=== PATIENT | male | born 1980 | race Caucasian/White ===

== ENCOUNTER 2016-09-27 19:17 | Emergency (ER) | payer OTHER | END 2016-09-27 21:26 | disposition home or self-care (01) | LOC: ER 19:17 | DX: R60.9 Edema, unspecified (principal); R94.5 Abnormal results of liver function studies; Z86.19 Personal history of other infectious and parasitic diseases; I10 Essential (primary) hypertension; J42 Unspecified chronic bronchitis; F17.210 Nicotine dependence, cigarettes, uncomplicated; Z88.1 Allergy status to other antibiotic agents | CPT/HCPCS: 36415; 96372; J1885 ==